=== PATIENT | male | born 1945 | race Caucasian/White ===

== ENCOUNTER 2025-03-10 13:03 | Observation (INO) | payer MEDICARE, BC ==
[2025-03-10 14:11] LABS: #Basophils Less than 0.03 10x3/uL (0.0-0.2); #Eosinophils 0.04 10x3/uL (0.0-0.7); #Monocytes 0.84 10x3/uL (0.11-0.59); #Neutrophils 9.50 10x3/uL (1.40-6.50); %Basophils 0.2 % (0.0-1.0); %Eosinophils 0.4 % (0.0-10.0); %Lymphocytes 4.7 % (21.0-51.0); %Monocytes 7.7 % (0.0-10.0); %Neutrophils 86.7 % (42.0-75.0); Hematocrit 45.3 % (42.0-52.0); Hemoglobin 15.0 g/dL (14.0-18.0); Mean Corpuscular Hemoglobin 29.0 pg (27.0-31.0); Mean Corpuscular Volume 87.6 fL (78.0-98.0); Platelet Count 189 10x3/uL (130-400); Red Blood Cell (RBC) Count 5.17 mill/uL (4.70-6.10); White Blood Cell (WBC) Count 10.94 10x3/uL (4.8-10.8)
[2025-03-10 14:41] LABS: Troponin I 0.015 ng/mL (< 0.028)
[2025-03-10 14:50] LABS: ALT (SGPT) 19 U/L (Less than 45); AST (SGOT) 27 U/L (11-34); Albumin 2.8 g/dL (3.1-4.5); Alkaline Phosphatase 62 U/L (40-110); Anion Gap 14 mmol/L (10-20); BUN (Urea Nitrogen) 18 mg/dL (8.4-25.7); Bilirubin, Total 0.8 mg/dL (0.3-1.2); Calc. Creatinine Clearance 0 mL/min (70-130); Calcium 7.6 mg/dL (7.8-10.44); Carbon Dioxide 18 mmol/L (23-31); Chloride 113 mmol/L (98-107); Globulin 2.4 g/dL (2.4-3.5); Glucose 98 mg/dL (83-110); Potassium 2.7 mmol/L (3.5-5.1); Sodium 142 mmol/L (136-145)
[2025-03-10] MEDS ORDERED: Potassium Bicarbonate/Cit Ac 20 MEQ TAB ONE (15:21)
[2025-03-10] MEDS ORDERED: Potassium Chloride 20 MEQ (100 mL) BAG ONE (15:29)
[2025-03-10] MEDS ORDERED: Acetaminophen 325 MG TAB PO PRN (16:35)
[2025-03-10 17:17] LABS: Magnesium 1.2 mg/dL (1.6-2.6)
[2025-03-10 18:33] VITALS: BMI 22.8
[2025-03-10 20:18] LABS: Anion Gap 13 mmol/L (10-20); BUN (Urea Nitrogen) 19 mg/dL (8.4-25.7); Calc. Creatinine Clearance 38 mL/min (70-130); Calcium 7.9 mg/dL (7.8-10.44); Carbon Dioxide 21 mmol/L (23-31); Chloride 110 mmol/L (98-107); Glucose 89 mg/dL (83-110); Potassium 3.1 mmol/L (3.5-5.1); Sodium 141 mmol/L (136-145)
[2025-03-10] MEDS: Magnesium 2 GM/50 ML(in water) 2 GM in Premix 1 BAG IVPB SCH (21:44)
[2025-03-11 05:25] LABS: #Basophils 0.03 10x3/uL (0.0-0.2); #Eosinophils 0.19 10x3/uL (0.0-0.7); #Monocytes 0.70 10x3/uL (0.11-0.59); #Neutrophils 4.67 10x3/uL (1.40-6.50); %Basophils 0.5 % (0.0-1.0); %Eosinophils 2.9 % (0.0-10.0); %Lymphocytes 15.5 % (21.0-51.0); %Monocytes 10.6 % (0.0-10.0); %Neutrophils 70.3 % (42.0-75.0); Hematocrit 41.6 % (42.0-52.0); Hemoglobin 14.1 g/dL (14.0-18.0); Mean Corpuscular Hemoglobin 28.9 pg (27.0-31.0); Mean Corpuscular Volume 85.2 fL (78.0-98.0); Platelet Count 188 10x3/uL (130-400); Red Blood Cell (RBC) Count 4.88 mill/uL (4.70-6.10); White Blood Cell (WBC) Count 6.63 10x3/uL (4.8-10.8)
[2025-03-11 06:23] LABS: ALT (SGPT) 18 U/L (Less than 45); AST (SGOT) 21 U/L (11-34); Albumin 2.7 g/dL (3.1-4.5); Alkaline Phosphatase 53 U/L (40-110); Anion Gap 10 mmol/L (10-20); BUN (Urea Nitrogen) 20 mg/dL (8.4-25.7); Bilirubin, Total 0.7 mg/dL (0.3-1.2); Calc. Creatinine Clearance 38 mL/min (70-130); Calcium 7.8 mg/dL (7.8-10.44); Carbon Dioxide 24 mmol/L (23-31); Chloride 112 mmol/L (98-107); Globulin 2.2 g/dL (2.4-3.5); Glucose 88 mg/dL (83-110); Potassium 3.7 mmol/L (3.5-5.1); Sodium 142 mmol/L (136-145)
[2025-03-11 07:11] LABS: Magnesium 1.6 mg/dL (1.6-2.6)
[2025-03-11] MEDS: Aspirin Chewable 81 MG TAB PO SCH (09:27)
[2025-03-11] MEDS: Vitamin E 400 UNITS CAP PO SCH (09:28)
[2025-03-11] MEDS: CO Q-10 CAPSULE 100 MG PO SCH (09:28)
[2025-03-11] MEDS: Enoxaparin 40 MG (0.4 mL) SYRINGE SC SCH (09:28)
[2025-03-11] MEDS: Multivit, Chewable SF 1 TAB PO SCH (09:28)
[2025-03-11] MEDS: Rosuvastatin 20 MG TAB PO SCH (09:28)
[2025-03-11] MEDS: Magnesium 2 GM/50 ML(in water) 2 GM in Premix 1 BAG IVPB SCH ×2 (11:10→15:55)
[2025-03-11 11:44] VITALS: TEMP 97.8
[2025-03-11] MEDS: Diphenoxylate HCl/Atropine Tablet PO PRN (13:58)
[2025-03-11 14:21] LABS: Anion Gap 5 mmol/L (10-20); BUN (Urea Nitrogen) 18 mg/dL (8.4-25.7); Calc. Creatinine Clearance 41 mL/min (70-130); Calcium 7.6 mg/dL (7.8-10.44); Carbon Dioxide 25 mmol/L (23-31); Chloride 115 mmol/L (98-107); Glucose 78 mg/dL (83-110); Magnesium 1.8 mg/dL (1.6-2.6); Potassium 3.3 mmol/L (3.5-5.1); Sodium 142 mmol/L (136-145)
[2025-03-11 16:01] VITALS: BP 118/90
[2025-03-11 16:54] VITALS: BMI 22.8
== END 2025-03-11 18:06 | disposition home or self-care (01) ==
LOC: ERS 13:03 → OBS 15:48
PROVIDERS: ADMIT Student in an Organized Health Care Education/Training Program; ATTEND Student in an Organized Health Care Education/Training Program
DX: E87.6 Hypokalemia (principal); E86.0 Dehydration; E83.42 Hypomagnesemia; E78.5 Hyperlipidemia, unspecified; I95.9 Hypotension, unspecified; I10 Essential (primary) hypertension; Z85.46 Personal history of malignant neoplasm of prostate; Z98.41 Cataract extraction status, right eye; Z98.42 Cataract extraction status, left eye; Z90.79 Acquired absence of other genital organ(s); Z79.82 Long term (current) use of aspirin; Z79.899 Other long term (current) drug therapy
CPT/HCPCS: 80048; 80053; 83735; 84100; 84484; 85025; 93005; J3475; J3480; J7120; 36415; 87324; 87449; 96365; 96366; 96375; 96376; G0378; J1650